=== PATIENT | male | born 2000 | race Caucasian/White ===

== ENCOUNTER 2022-10-28 11:05 | Emergency (ER) | payer OTHER ==
[2022-10-28 11:13] VITALS: BP 144/89; PULSE 79; O2SAT 96
[2022-10-28] MEDS ORDERED: TYLENOL EXTRA STRENGTH 500 MG PO STA (11:25)
[2022-10-28] MEDS ORDERED: MOTRIN 600 MG PO ONE (11:25)
[2022-10-28] MEDS ORDERED: MOTRIN 600 MG ONE (11:41)
[2022-10-28] MEDS ORDERED: TYLENOL EXTRA STRENGTH 500 MG ONE (11:41)
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
== END 2022-10-28 12:27 | disposition home or self-care (01) ==
LOC: ED 11:05
DX: S06.0X0A Concussion without loss of consciousness, initial encounter (principal); S70.312A Abrasion, left thigh, initial encounter; V48.5XXA Car driver injured in noncollision transport accident in traffic accident, initial encounter; R51.9 Headache, unspecified; H92.01 Otalgia, right ear
CPT/HCPCS: 70450; 71046; 73010; 99285; A9270-GY

== ENCOUNTER 2022-12-04 14:01 | Emergency (ER) | payer OTHER ==
[2022-12-04] MEDS ORDERED: TORAdol 30 mg Injection IM ONE (14:06)
[2022-12-04] MEDS ORDERED: TORAdol 30 mg Injection ONE (14:08)
[2022-12-04 14:09] VITALS: BP 129/87; PULSE 64; O2SAT 100
--- NOTE | 2022-12-04 14:26 | ERPHSYRPT ---
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 Pain is 8/10 and worse w deep inspiration. He denies other injuries at this time, including head injury/C,T, and L-spine pain/UE pain/Hip pain/LE pain. Occurred: other (2-3 days ago) Reason for Fall: fell from standing pos (Fell on stump playing football) Injuries/Pain Location: chest Loss of Consciousness: no loss of consciousness Quality: aching Severity of Pain-Max: severe Severity of Pain-Current: severe Modifying Factors: Improves With: other (Deep breaths) Associated Symptoms (Fall): denies symptoms Allergies/Adverse Reactions: No Known Drug Allergies Allergy (Verified 12/04/22 14:10) Hx Tetanus, Diphtheria Vaccination/Date Given: Yes Hx Influenza Vaccination/Date Given: No Hx Pneumococcal Vaccination/Date Given: No Travel Risk - International Travel Have you traveled outside of the country in past 3 weeks: No - Coronavirus Screening Are you exhibiting any of the following symptoms?: No Close contact with a COVID-19 positive Pt in past 14-21 Days: No - Vaccine Status Have you recieved a Covid-19 vaccination: Yes [employer]: Moderna - Vaccination Dates Date of 2cond Vaccination (if applicable): 2020 - Review of Systems Constitutional: No Symptoms Eyes: No Symptoms Ears, Nose, & Throat: No Symptoms Respiratory: No Symptoms Cardiac: No Symptoms, Chest Pain Abdominal/Gastrointestinal: No Symptoms Genitourinary Symptoms: No Symptoms Musculoskeletal: No Symptoms Skin: No Symptoms Neurological: No Symptoms Psychological: No Symptoms Endocrine: No Symptoms Hematologic/Lymphatic: No Symptoms Immunological/Allergic: No Symptoms - Past Medical History Pertinent Past Medical History: No - Past Surgical History Past Surgical History: No - Social History Smoking Status: Never smoker Exposure to second hand smoke: Yes Drug Use: none Patient Lives Alone: No - Nursing Vital Signs Nursing Vital Signs: Initial Vital Signs Temperature 97.8 F 12/04/22 14:02 Pulse Rate 64 12/04/22 14:02 Blood Pressure 129/87 12/04/22 14:02 O2 Sat by Pulse Oximetry 100 12/04/22 14:02 Pain Scale Pain Intensity 8 WNL - [place] Coma Score Best Eye Response ([place]): (4) open spontaneously Best Verbal Response ([place]): (5) oriented Best Motor Response ([place]): (6) obeys commands [place] Total: 15 - Physical Exam General Appearance: no apparent distress Head Injury: no evidence of injury Eye Exam: PERRL/EOMI, eyes nml inspection ENT Exam: airway nml, No evidence of ENT injury, No dental injury, No clear fluid (ears), No clear fluid (nose) Neck Exam: supple, trachea midline, full range of motion, normal inspection (C- spine NTTP) Respiratory/Chest Exam: chest tenderness (R anterior-superior thorax TTP), normal breath sounds, No respiratory distress Cardiovascular Exam: normal heart sounds, regular rate/rhythm, normal peripheral pulses, No murmur, No edema Gastrointestinal Exam: soft, normal bowel sounds Back Exam: normal inspection, No vertebral tenderness Extremity Exam: normal inspection, normal range of motion, capillary refill <3 sec, pelvis stable, No deformities Peripheral Pulses: carotid (R): 2+, carotid (L): 2+ Neurologic Exam: alert, oriented x 3, cooperative, window display designer II-XII nml as tested, normal mood/affect, nml cerebellar function, nml station & gait, sensation nml Skin Exam: normal color, warm, dry SpO2 Interpretation: normal SpO2: 100 O2 Delivery: Room Air - Course Nursing assessment & vital signs reviewed: Yes EKG Interpreted by Me: RATE (NSR/Rate 72/early Repol/Normal QT-QTc/T[place]/No acute ST segment changes) - CT Exams Chest CT Interpretation: Discussed w/radiologist (NAD) Ordered Tests: Active Orders 24 hr Category Date Time Status CHEST WITHOUT CONTRAST [CT] Stat Exams 12/04/22 14:06 Completed Medication Summary Discontinued Medications Generic Name Dose Route Start Last Admin Trade Name Freq PRN Reason Stop Dose Admin Ketorolac Tromethamine 30 mg 12/04/22 14:06 12/04/22 14:12 Ketorolac Tromethamine 30 Mg/Ml Inj IM 12/04/22 14:07 30 mg STAT ONE Administration Ketorolac Tromethamine Confirm 12/04/22 14:08 Ketorolac Tromethamine 30 Mg/Ml Inj Administered 12/04/22 14:09 Dose 30 mg .ROUTE .STK-MED ONE - Progress Progress: improved Progress Note: 12/04/22 14:48 Nursing note and vital signs reviewed No food or housing insecurities noted Pt is a full code CT results reviewed and shared w pt Pain improved w 30mg IM Toradol Counseled pt/family regarding: diagnosis, need for follow-up, rad results - Departure Departure Disposition: Home Clinical Impression: Chest wall contusion Condition: Stable Critical Care Time: No Referrals: DOCTOR,NO FAMILY [Primary Care Provider] - Follow up/PCP as directed Instructions: Blunt Chest Trauma (DC) Additional Instructions: Toradol as needed for pain Follow up with your family MD for continued pain Return to ER for increasing pain or shortness of breath Forms: Work/School Release Form Prescriptions: Ketorolac Trometh 10 mg Tab [TORAdol 10 MG TABLET] 10 mg PO TID PRN PRN #10 tablet PRN Reason: Pain
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
== END 2022-12-04 15:13 | disposition home or self-care (01) ==
LOC: ED 14:01
DX: S20.211A Contusion of right front wall of thorax, initial encounter (principal); W01.198A Fall on same level from slipping, tripping and stumbling with subsequent striking against other object, initial encounter; Y93.61 Activity, american tackle football; R07.89 Other chest pain
CPT/HCPCS: 71250; 96372; 99283; J1885